=== PATIENT | male | born 1990 | race Two or more races ===

== ENCOUNTER 2023-05-16 19:47 | Emergency (ER) | payer OTHER ==
[~2023-05-16] VITALS: Ht 167.6 cm; Wt 86.2 kg
[~2023-05-16 19:47] MED LIST: CATAFLAM50 MG PO; PERCOCET 5/321 UDTAB PO; RECTICARE30 GM TP
[2023-05-16] MEDS ORDERED: BUSPIRONE HCL5 MG PO (20:03)
[2023-05-16] MEDS ORDERED: LAMOTRIGINE25 M1 PO (20:03)
[2023-05-16 20:36] LABS: HEMATOCRIT 43.4 % (39.0-48.0); MEAN CELL VOLUME 93.2 fL (80.0-100.00); MEAN CORPUSCULAR HEMOGLOBIN 32.2 pg (27.00-32.0); MEAN CORPUSCULAR HGB CONC 34.5 g/dl (32.0-36.0); PLATELET COUNT 209 K/uL (150-450); RED BLOOD COUNT 4.66 M/uL (4.00-6.00); RED CELL DISTRIBUTION WIDTH 12.4 % (11.5-14.5)
[2023-05-16 20:56] LABS: BILIRUBIN TOTAL 1.22 mg/dL (0.3-1.2); CALCIUM 8.6 mg/dL (8.5-10.1); CREATININE SERUM 1.11 mg/dL (0.70-1.30); GFR 76.77; POTASSIUM 3.71 mEq/L (3.5-5.1)
[2023-05-16] MEDS ORDERED: TUSNEL LIQUID178 ML PO (21:20)
[2023-05-16] MEDS ORDERED: ZITHROMAX500 MG PO (21:20)
[2023-05-16] MEDS ORDERED: ZYRTEC10 M3 PO (21:20)
[2023-05-16] MEDS ORDERED: TERBINAFINE HC250 MG PO (21:21)
== END 2023-05-16 22:10 | disposition home or self-care (01) ==
LOC: ER 19:48
PROVIDERS: General Practice
DX: J06.9 Acute upper respiratory infection, unspecified (principal); Z20.822 Contact with and (suspected) exposure to COVID-19